=== PATIENT | male | born 1980 | race Two or more races ===

== ENCOUNTER → 2017-05-08 | Outpatient (CLI) | payer OTHER ==
[2017-05-08 12:30] LABS: Rheumatoid Factor, Qnt <9 IU/mL (<12)
[2017-05-08 12:31] LABS: C Reactive Protein <5.0 mg/L (<10.0)
[2017-05-10 10:26] LABS: HLA B27 NEGATIVE; HLA B27 Comment SEEBELOW
== END | disposition home or self-care (01) ==
LOC: LABWHC1 12:00
PROVIDERS: ATTEND Internal Medicine
DX: M25.50 Pain in unspecified joint (principal)
CPT/HCPCS: 36415; 84443; 85652; 86038; 86140; 86431; 86812

== ENCOUNTER → 2018-03-09 | Outpatient (CLI) | payer OTHER ==
--- NOTE | 2018-03-10 06:45 | CT ---
EXAMINATION TYPE: CT pelvis w con DATE OF EXAM: 03/09/2018 COMPARISON: CT abdomen and pelvis March 04, 2016. HISTORY: Bilateral inguinal pain x2 months. Bilateral inguinal hernia per order. CT DLP: 825 mGycm Automated exposure control for dose reduction was used. CONTRAST: Performed with oral and with IV Contrast, patient injected with 100ml mL of Isovue M300. FINDINGS: Oral contrast reaches level of cecum. There is no suspicious small or large bowel dilatation. Amount of fecal material is somewhat prominent particularly throughout the right and visualized portion of t ransverse colon. Correlate for mild proximal colonic fecal stasis. Urinary bladder appears within normal limits. Prostate gland is upper limits of normal in size. There is left pelvic phleboliths seen. There is no concerning pelvic fluid collection. There is no suspici ous pelvic adenopathy. Benign-appearing lymph nodes are seen in the bilateral groin. There is no suspicious fat or bowel con taining inguinal hernia bilaterally. There is symmetric mild axial joint space loss and acetabular sp urring in both hips with flattening of the superior acetabulum noted bilaterally. IMPRESSION: NO SUSPICIOUS INGUINAL HERNIAS. . NO SIGNIFICANT FINDING IS SEEN TO ACCOUNT FOR PATIENT'S SYMPTOMS.
== END | disposition home or self-care (01) ==
LOC: RADCTMAIN 16:50
PROVIDERS: ATTEND Surgery
DX: K40.20 Bilateral inguinal hernia, without obstruction or gangrene, not specified as recurrent (principal)
CPT/HCPCS: 72193; Q9967

== ENCOUNTER 2019-04-25 14:48 | Emergency (ER) | payer OTHER ==
[2019-04-25 14:58] VITALS: BP 123/74; PULSE 74; RESP 18; TEMP 98.4
--- NOTE | 2019-04-25 15:17 | XR ---
EXAMINATION TYPE: XR ankle complete RT DATE OF EXAM: 04/25/2019 COMPARISON: NONE HISTORY: 88-year-old male with pain and bruising after fall TECHNIQUE: 3 views FINDINGS: Mild circumferential soft tissue swelling at the ankle with small underlying tibiotalar joint effusio n. The Achilles tendon is normally delineated. The ankle mortise remains congruent with preservation of the distal tibiofibular overlap. Talar dome is intact. Subtalar joint aligned. Tiny posterior and plantar calcaneal spurs. No acute fracture, subluxation, or dislocation. IMPRESSION: Mild circumferential soft tissue swelling and underlying ankle joint effusion. No acute osseous abnor mality seen.
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
== END 2019-04-25 15:57 | disposition home or self-care (01) ==
LOC: EC 14:48
DX: S93.401A Sprain of unspecified ligament of right ankle, initial encounter (principal); V17.4XXA Pedal cycle driver injured in collision with fixed or stationary object in traffic accident, initial encounter; Y93.55 Activity, bike riding; Y92.89 Other specified places as the place of occurrence of the external cause
CPT/HCPCS: 29515; 99283